=== PATIENT | male | born 1960 | race Caucasian/White ===

== ENCOUNTER 2019-05-24 12:59 | Observation (INO) | payer OTHER ==
[2019-05-24 13:42] LABS: Absolute Lymphocytes (CBC) 2.2 K/uL (0.7-4.9); Basophils % 1.3 % (0-1.3); Hematocrit 51.4 % (39.6-49.0); Lymphocytes % 27.7 % (15.3-44.8); MPV 7.8 fL (7.6-11.3); RBC Red Blood Cell Count 5.15 M/uL (4.33-5.43)
[2019-05-24 13:46] LABS: Protime INR 0.96
[2019-05-24] MEDS ORDERED: ASPIRIN 81 MG CHEWABLE TABLET ONE (13:46)
--- NOTE | 2019-05-24 13:59 | RAD REPORT ---
EXAM DESCRIPTION: RAD - Chest Single View - 05/24/2019 1:33 pm CLINICAL HISTORY: CHEST PAIN Chest pain. COMPARISON: No comparisons FINDINGS: Portable technique limits examination quality. The lungs are grossly clear. The heart is normal in size. No displaced fractures. IMPRESSION: No acute intrathoracic process suspected.
[2019-05-24 14:01] LABS: ALT/SGPT 36 U/L (12-78); AST/SGOT 31 U/L (15-37); Albumin 3.6 g/dL (3.4-5.0); Alkaline Phosphatase 94 U/L (45-117); BUN Blood Urea Nitrogen 8 mg/dL (7-18); Bicarbonate 30 mmol/L (21-32); Bilirubin Direct 0.2 mg/dL (0-0.2); Bilirubin Total 0.8 mg/dL (0.2-1.0); Glucose Level 92 mg/dL (74-106); Lipase 124 U/L (73-393); Magnesium 2.5 mg/dL (1.8-2.4); NT PRO-BNP 57 pg/mL (<125); Potassium 3.8 mmol/L (3.5-5.1); Protein, Total 8.1 g/dL (6.4-8.2); Sodium Level 141 mmol/L (136-145); Troponin (Emerg Dept Use Only) < 0.02 ng/mL (0.0-0.045)
[2019-05-24] MEDS ORDERED: LEVALBUTEROL 1.25 MG/3 ML NEB ONE (14:17)
[2019-05-24] MEDS ORDERED: METHYLPREDNISOLONE 125 MG INJ ONE (14:17)
[2019-05-24] MEDS ORDERED: IPRATROPIUM BROM 0.5MG/2.5ML ONE (14:17)
--- NOTE | 2019-05-24 14:50 | ER ---
Nurse's Notes [facility] Name: Richmond Quintero Age: 58 yrs Sex: Male : 1960 Arrival Date: 05/24/2019 Time: 13:00 Bed 27 Private MD: Diagnosis: Chest pain, unspecified;Chest pain on breathing;Essential (primary) hypertension;Esophagitis;Tobacco abuse counseling;Tobacco use Presentation: 05/24 13:18 Presenting complaint: Patient states: R sided chest pain that radiates to the neck ca1 started 1.5 hrs ago. Described as heavy and pressure, has been constant for the last 45 minutes. Pt reports SOB upon exertion. DENIES cough and congestion, DENIES N/V/dizziness/lightheaded. Transition of care: patient was not received from another setting of care. Onset of symptoms was May 24, 2019. Risk Assessment: Do you want to hurt yourself or someone else? Patient reports no desire to harm self or others. Initial Sepsis Screen: Does the patient meet any 2 criteria? No. Patient's initial sepsis screen is negative. Does the patient have a suspected source of infection? No. Patient's initial sepsis screen is negative. Care prior to arrival: None. 13:18 Method Of Arrival: Wheelchair ca1 13:18 Acuity: ARIA 3 ca1 Historical: - Allergies: 13:22 No Known Allergies; ca1 - Home Meds: 13:22 Metoprolol Tartrate Oral [Active]; Lexapro Oral [Active]; Lisinopril Oral [Active]; ca1 Omeprazole Oral [Active]; - PMHx: 13:22 Hypertension; Anxiety; Acid Reflux; Atrial Fib; ca1 - PSHx: 13:22 None; ca1 - Immunization history:: Adult Immunizations up to date, Pneumococcal vaccine is not up to date, Flu vaccine is not up to date. - Social history:: Smoking status: Patient uses tobacco products, smokes one pack cigarettes per day. - Ebola Screening: : Patient negative for fever greater than or equal to 101.5 degrees Fahrenheit, and additional compatible Ebola Virus Disease symptoms Patient denies exposure to infectious person Patient denies travel to an Ebola-affected area in the 21 days before illness onset No symptoms or risks identified at this time. - Family history:: not pertinent. Screenin:33 Abuse screen: Denies threats or abuse. Denies injuries from another. Nutritional mg2 screening: No deficits noted. Tuberculosis screening: No symptoms or risk factors identified. Fall Risk IV access (20 points). Assessment: 14:31 General: Appears in no apparent distress. comfortable, Behavior is calm, cooperative. mg2 Pain: Complains of pain in chest Pain radiates to neck Pain currently is 2 out of 10 on a pain scale. Quality of pain is described as aching. Pain: Pain began gradually, 2 hours ago. Neuro: Level of Consciousness is awake, alert, obeys commands, Oriented to person, place, time, situation. Cardiovascular: Capillary refill < 3 seconds Patient's skin is warm and dry. Respiratory: Airway is patent Respiratory effort is even, unlabored, Respiratory pattern is regular, symmetrical. GI: No signs and/or symptoms were reported involving the gastrointestinal system. : No signs and/or symptoms were reported regarding the genitourinary system. EENT: No signs and/or symptoms were reported regarding the EENT system. Derm: Skin is intact, is healthy with good turgor, Skin is pink, warm \T\ dry. normal. Vital Signs: 13:22 BP 134 / 81; Pulse 68; Resp 17 S; Temp 98.4(O); Pulse Ox 94% on R/A; Weight 111.13 kg ca1 (R); Height 6 ft. 0 in. (182.88 cm) (R); Pain 5/10; 14:34 BP 127 / 86; Pulse 58; Resp 18; Pulse Ox 95% on R/A; mg2 13:22 Body Mass Index 33.23 (111.13 kg, 182.88 cm) ca1 ED Course: 13:00 Patient arrived in ED. mr 13:09 Balta Boyle MD is Attending Physician. graeme 13:20 Triage completed. ca1 13:22 Arm band placed on right wrist. EKG completed in triage. Results shown to . ca1 13:28 Inserted saline lock: 20 gauge in right antecubital area, using aseptic technique. ss Blood collected. 13:37 XRAY Chest (1 view) In Process Unspecified. EDMS 13:42 Jagdeep Madrid, RN is Primary Nurse. mg2 14:33 Patient has correct armband on for positive identification. shelter monitor on. Pulse mg2 ox on. NIBP on. Door closed. Warm blanket given. 14:34 No provider procedures requiring assistance completed. Patient maintains SpO2 mg2 saturation greater than 95% on room air. 14:45 Hansel Yan DO is Hospitalizing Provider. [facility] 15:35 CT Chest For PE Angio In Process Unspecified. EDHI 16:14 Hansel Yan DO is Hospitalizing Provider. [facility] 17:02 Patient admitted, IV remains in place. mg2 Administered Medications: 14:01 Not Given (Patient Refused; patient had 325 mg an hour UPSETTER): Aspirin Chewable Tablet mg2 324 mg PO once; 81 mg tablets x 4 14:29 Drug: SOLU-Medrol 125 mg Route: IVP; Site: left antecubital; mg2 16:02 Follow up: Response: No adverse reaction mg2 14:30 Not Given (Patient Refused): Xopenex 1.25 mg Inhalation once mg2 14:30 Not Given (Patient Refused): AtroVENT Aerosol 0.5 mg Inhalation once mg2 16:15 Drug: GI Cocktail without - (Maalox Suspension 30 ml, Lidocaine Liquid 2 % 15 mg2 ml) Route: PO; 16:29 Follow up: Response: No adverse reaction; Marked relief of symptoms mg2 16:16 Drug: Lovenox 100 mg Route: Sub-Q; Site: right lower abdomen; mg2 16:29 Follow up: Response: No adverse reaction mg2 16:42 Drug: ProTONIX 40 mg Route: IVP; Site: left antecubital; mg2 17:02 Follow up: Response: No adverse reaction mg2 Outcome: 14:49 Decision to Hospitalize by Provider. graeme 16:15 Decision to Hospitalize by Provider. [facility] 17:02 Admitted to Med/surg accompanied by tech, via wheelchair, room 228, with chart, Report mg2 called to NIKO Romano 17:02 Condition: stable 17:02 Instructed on the need for admit, Demonstrated understanding of instructions. 17:05 Patient left the ED. mg2 Signatures: Dispatcher [employer] Balta Walsh MD MD cha Rivera, Mary mr Smirch, Shelby, NIKO POPE ss Jagdeep Madrid RN RN mg2 Jennifer Galloway RN RN ca1
--- NOTE | 2019-05-24 14:51 | EDPHYS ---
Physician Documentation [facility] Name: Richmond Quintero Age: 58 yrs Sex: Male : 1960 Arrival Date: 05/24/2019 Time: 13:00 Bed 27 Private MD: ED Physician Balta Boyle HPI: 05/24 13:33 This 58 yrs old Male presents to ER via Wheelchair with complaints of Chest graeme Pain. 13:33 The patient or guardian reports chest pain that is located primarily in the substernal graeme area. Onset: just prior to arrival, this morning. The pain does not radiate. Associated signs and symptoms: The patient has no apparent associated signs or symptoms. The chest pain is described as a pressure, squeezing. Duration: The patient or guardian reports a single episode, that is still ongoing. Modifying factors: The symptoms are alleviated by nothing. the symptoms are aggravated by nothing. Severity of pain: At its worst the pain was moderate in the emergency department the pain has improved mildly. The patient has experienced similar episodes in the past, several times. Historical: - Allergies: 13:22 No Known Allergies; ca1 - Home Meds: 13:22 Metoprolol Tartrate Oral [Active]; Lexapro Oral [Active]; Lisinopril Oral [Active]; ca1 Omeprazole Oral [Active]; - PMHx: 13:22 Hypertension; Anxiety; Acid Reflux; Atrial Fib; ca1 - PSHx: 13:22 None; ca1 - Immunization history:: Adult Immunizations up to date, Pneumococcal vaccine is not up to date, Flu vaccine is not up to date. - Social history:: Smoking status: Patient uses tobacco products, smokes one pack cigarettes per day. - Ebola Screening: : Patient negative for fever greater than or equal to 101.5 degrees Fahrenheit, and additional compatible Ebola Virus Disease symptoms Patient denies exposure to infectious person Patient denies travel to an Ebola-affected area in the 21 days before illness onset No symptoms or risks identified at this time. - Family history:: not pertinent. ROS: 13:33 Constitutional: Negative for fever, chills, and weight loss, Eyes: Negative for injury, graeme pain, redness, and discharge, ENT: Negative for injury, pain, and discharge, Neck: Negative for injury, pain, and swelling, Respiratory: Negative for shortness of breath, cough, wheezing, and pleuritic chest pain, Abdomen/GI: Negative for abdominal pain, nausea, vomiting, diarrhea, and constipation, Back: Negative for injury and pain, : Negative for injury, bleeding, discharge, and swelling, MS/Extremity: Negative for injury and deformity, Skin: Negative for injury, rash, and discoloration, Neuro: Negative for headache, weakness, numbness, tingling, and seizure, Psych: Negative for depression, anxiety, suicide ideation, homicidal ideation, and hallucinations, Allergy/Immunology: Negative for hives, rash, and allergies, Endocrine: Negative for neck swelling, polydipsia, polyuria, polyphagia, and marked weight changes, Hematologic/Lymphatic: Negative for swollen nodes, abnormal bleeding, and unusual bruising. 13:33 Cardiovascular: Positive for chest pain, of the right clavicle, anterior aspect of right upper chest and right breast. Exam: 13:33 Constitutional: This is a well developed, well nourished patient who is awake, alert, graeme and in no acute distress. Head/Face: Normocephalic, atraumatic. Eyes: Pupils equal round and reactive to light, extra-ocular motions intact. Lids and lashes normal. Conjunctiva and sclera are non-icteric and not injected. Cornea within normal limits. Periorbital areas with no swelling, redness, or edema. ENT: Nares patent. No nasal discharge, no septal abnormalities noted. Tympanic membranes are normal and external auditory canals are clear. Oropharynx with no redness, swelling, or masses, exudates, or evidence of obstruction, uvula midline. Mucous membranes moist. Neck: Trachea midline, no thyromegaly or masses palpated, and no cervical lymphadenopathy. Supple, full range of motion without nuchal rigidity, or vertebral point tenderness. No Meningismus. Chest/axilla: Normal chest wall appearance and motion. Nontender with no deformity. No lesions are appreciated. Cardiovascular: Regular rate and rhythm with a normal S1 and S2. No gallops, murmurs, or rubs. Normal PMI, no JVD. No pulse deficits. Respiratory: Lungs have equal breath sounds bilaterally, clear to auscultation and percussion. No rales, rhonchi or wheezes noted. No increased work of breathing, no retractions or nasal flaring. Abdomen/GI: Soft, non-tender, with normal bowel sounds. No distension or tympany. No guarding or rebound. No evidence of tenderness throughout. Back: No spinal tenderness. No costovertebral tenderness. Full range of motion. Skin: Warm, dry with normal turgor. Normal color with no rashes, no lesions, and no evidence of cellulitis. MS/ Extremity: Pulses equal, no cyanosis. Neurovascular intact. Full, normal range of motion. Neuro: Awake and alert, GCS 15, oriented to person, place, time, and situation. Cranial nerves II-XII grossly intact. Motor strength 5/5 in all extremities. Sensory grossly intact. Cerebellar exam normal. Normal gait. Psych: Awake, alert, with orientation to person, place and time. Behavior, mood, and affect are within normal limits. 14:03 Musculoskeletal/extremity: DVT Exam: No signs of deep vein thrombosis. no pain, no graeme swelling, no tenderness, negative Homans' sign noted on exam, no appreciated bluish discoloration, no erythema, no increased warmth. Vital Signs: 13:22 BP 134 / 81; Pulse 68; Resp 17 S; Temp 98.4(O); Pulse Ox 94% on R/A; Weight 111.13 kg ca1 (R); Height 6 ft. 0 in. (182.88 cm) (R); Pain 5/10; 14:34 BP 127 / 86; Pulse 58; Resp 18; Pulse Ox 95% on R/A; mg2 13:22 Body Mass Index 33.23 (111.13 kg, 182.88 cm) ca1 MDM: 13:09 Patient medically screened. [facility] 13:34 Data reviewed: vital signs, nurses notes, lab test result(s), EKG, radiologic studies, [facility] CT scan, plain films. 05/24 13:11 Order name: Basic Metabolic Panel; Complete Time: 14:43 [facility] 05/24 13:11 Order name: CBC with Diff; Complete Time: 13:51 [facility] 05/24 13:11 Order name: LFT's; Complete Time: 14:43 [facility] 05/24 13:11 Order name: Magnesium; Complete Time: 14:43 [facility] 05/24 13:11 Order name: NT PRO-BNP; Complete Time: 14:43 [facility] 05/24 13:11 Order name: PT-INR; Complete Time: 14:43 [facility] 05/24 13:11 Order name: Troponin (emerg Dept Use Only); Complete Time: 14:43 [facility] 05/24 13:11 Order name: XRAY Chest (1 view); Complete Time: 14:43 [facility] 05/24 13:11 Order name: Lipase; Complete Time: 14:43 [facility] 05/24 13:32 Order name: CT Chest For PE Angio; Complete Time: 16:11 [facility] 05/24 13:11 Order name: EKG; Complete Time: 13:12 [facility] 05/24 13:11 Order name: Cardiac monitoring; Complete Time: 13:42 [facility] 05/24 13:11 Order name: EKG - Nurse/Tech; Complete Time: 13:42 [facility] 05/24 13:11 Order name: IV Saline Lock; Complete Time: 13:42 [facility] 05/24 13:11 Order name: Labs collected and sent; Complete Time: 13:42 [facility] 05/24 13:11 Order name: O2 Per Protocol; Complete Time: 13:42 [facility] 05/24 13:11 Order name: O2 Sat Monitoring; Complete Time: 13:42 [facility] 05/24 13:11 Order name: Urine Dipstick-Ancillary (obtain specimen); Complete Time: 17:02 [facility] Administered Medications: 14:01 Not Given (Patient Refused; patient had 325 mg an hour DISTRIBUTION CENTER MANAGER): Aspirin Chewable Tablet mg2 324 mg PO once; 81 mg tablets x 4 14:29 Drug: SOLU-Medrol 125 mg Route: IVP; Site: left antecubital; mg2 16:02 Follow up: Response: No adverse reaction mg2 14:30 Not Given (Patient Refused): Xopenex 1.25 mg Inhalation once mg2 14:30 Not Given (Patient Refused): AtroVENT Aerosol 0.5 mg Inhalation once mg2 16:15 Drug: GI Cocktail without - (Maalox Suspension 30 ml, Lidocaine Liquid 2 % 15 mg2 ml) Route: PO; 16:29 Follow up: Response: No adverse reaction; Marked relief of symptoms mg2 16:16 Drug: Lovenox 100 mg Route: Sub-Q; Site: right lower abdomen; mg2 16:29 Follow up: Response: No adverse reaction mg2 16:42 Drug: ProTONIX 40 mg Route: IVP; Site: left antecubital; mg2 17:02 Follow up: Response: No adverse reaction mg2 Disposition: 05/24/19 16:15 Hospitalization ordered by Hansel Yan for Observation. Preliminary diagnosis are Chest pain, unspecified, Chest pain on breathing, Essential (primary) hypertension, Esophagitis, Tobacco abuse counseling, Tobacco use. - Bed requested for Telemetry/MedSurg (observation). - Status is Observation. mg2 - Condition is Fair. - Problem is new. - Symptoms have improved. UTI on Admission? No Signatures: Dispatcher [employer] EDMS Kristy Macdonald RN RN dw Anderson, Corey, MD MD cha Gardose, Michele, RN RN mg2 Jennifer Galloway RN RN ca1 Corrections: (The following items were deleted from the chart) 16:12 14:49 Hospitalization Ordered by Hansel Yan DO for Observation. Preliminary graeme diagnosis is Chest pain, unspecified; Chest pain on breathing; Essential (primary) hypertension; Tobacco abuse counseling; Tobacco use. Bed requested for Telemetry/MedSurg (observation). Status is Observation. Condition is Fair. Problem is new. Symptoms have improved. UTI on Admission? No. graeme 16:12 16:12 05/24/2019 14:49 Hospitalization Ordered by Hansel Yan DO for Observation. graeme Preliminary diagnosis is Chest pain, unspecified; Chest pain on breathing; Essential (primary) hypertension; Tobacco abuse counseling; Tobacco use; Esophagitis; Chronic obstructive pulmonary disease, unspecified. Bed requested for Telemetry/MedSurg (observation). Status is Observation. Condition is Fair. Problem is new. Symptoms have improved. UTI on Admission? No. graeme 16:25 16:15 Hospitalization Ordered by Hansel Yan DO for Observation. Preliminary dw diagnosis is Chest pain, unspecified; Chest pain on breathing; Essential (primary) hypertension; Esophagitis; Tobacco abuse counseling; Tobacco use. Bed requested for Telemetry/MedSurg (observation). Status is Observation. Condition is Fair. Problem is new. Symptoms have improved. UTI on Admission? No. graeme 17:05 16:25 05/24/2019 16:15 Hospitalization Ordered by Hansel Yan DO for Observation. mg2 Preliminary diagnosis is Chest pain, unspecified; Chest pain on breathing; Essential (primary) hypertension; Esophagitis; Tobacco abuse counseling; Tobacco use. Bed requested for Telemetry/MedSurg (observation). Status is Observation. Condition is Fair. Problem is new. Symptoms have improved. UTI on Admission? No. dw
[2019-05-24] MEDS ORDERED: ENOXAPARIN 100 MG/ML SYR SQ ONE (15:29)
--- NOTE | 2019-05-24 15:53 | RAD REPORT ---
EXAM DESCRIPTION: CT - Chest For Pe Angio - 05/24/2019 3:35 pm CLINICAL HISTORY: Chest pain. CHEST PAIN COMPARISON: No comparisons TECHNIQUE: CT angiogram of the pulmonary arteries was performed with MIP. All CT scans are performed using dose optimization technique as appropriate and may include automated exposure control or mA/KV adjustment according to patient size. FINDINGS: No evidence of pulmonary thromboembolism. No acute aortic finding demonstrated. Diffuse COPD is noted. The esophagus appears quite thick throughout its course. Small hiatal hernia i s also present. No significant pericardial or pleural fluid. No concerning bony finding. IMPRESSION: No evidence of pulmonary thromboembolism. Moderate COPD. The esophagus appears quite thick throughout its course with a small hiatal hernia. Esophagitis is a possibility. Recommend followup nonemergent upper endoscopy assessment.
[2019-05-24] MEDS ORDERED: ONDANSETRON 4 MG/2 ML VIAL ONE (16:08)
[2019-05-24] MEDS ORDERED: LIDOCAINE VISCOUS 2% SOLN 15 ML UDC ONE (16:08)
[2019-05-24] MEDS ORDERED: MORPHINE 4 MG/ML SYR ONE (16:08)
[2019-05-24] MEDS ORDERED: MAGNE/ALUM HYDROXD 30 ML UCUP ONE (16:08)
[2019-05-24] MEDS ORDERED: PANTOPRAZOLE 40 MG INJ ONE (16:29)
--- NOTE | 2019-05-24 16:32 | P.HP ---
Certification for Inpatient Patient admitted to: Observation With expected LOS: <2 Midnights Patient will require the following post-hospital care: None Practitioner: I am a practitioner with admitting privileges, knowledge of patient current condition, hospital course, and medical plan of care. Services: Services provided to patient in accordance with Admission requirements found in Title 42 Section 412.3 of the Code of Federal Regulations Patient History Date of Service: 05/24/19 Primary Care Provider: [facility] Reason for admission: Epigastric pain and right-sided chest pain History of Present Illness: 58-year-old male with history of hypertension, paroxysmally atrial fibrillation, GERD, anxiety and obstructive sleep apnea on CPAP. Patient reported right-sided chest pain today. He would radiate to the sternal region and epigastric area. He denied any nausea, vomiting, shortness of breath or palpitation. It was worse with swallowing liquid. He has reported some bright red blood over the past several months. He is to see GI here soon for EGD. Patient came to the ER for further evaluation. In the ER patient evaluated. EKG shows no significant EKG changes. Vital signs stable. Chest x-ray unremarkable. White count 8.1, hemoglobin 17.5. Platelet count 229. Sodium 141, potassium 3.8, GFR of 68. Glucose 92. Initial troponin unremarkable. CT scan showed no evidence of pulmonary embolism. No aortic abnormal finding. Diffuse COPD noted. Small hiatal hernia with esophagus appearing quite thick likely esophagitis. Patient was admitted for observation. When I saw the patient ER, he appeared comfortable. No significant chest pain noted. He reported some indigestion. He is to see GI here soon for EGD. Patient is seen at the [facility]. ER called for transfer but no beds were available. Home medications list reviewed: Yes - Past Medical/Surgical History Diabetic: No -: Hypertension -: Paroxysmally atrial fibrillation -: GERD with hiatal hernia -: Anxiety -: Obstructive sleep apnea on CPAP -: Tobacco abuse Past Surgical History: Patient denies surgical history Psychosocial/ Personal History: Patient lives at home. - Family History Family History: Reviewed- Non-Contributory - Social History Smoking Status: Heavy Tobacco smoker (>10 cigarettes/day) Counseled patient to stop smoking for: less than 10 minutes Smoking therapy provided: Yes Patient receptive to therapy: Yes Alcohol use: Yes CD- Drugs: No Caffeine use: Yes Place of Residence: Home Review of Systems General: As per HPI Eyes: Unremarkable ENT: Unremarkable Respiratory: Unremarkable Cardiovascular: Chest Pain, As per HPI Gastrointestinal: Hematochezia, Other (Indigestion and epigastric pain), As per HPI Genitourinary: Unremarkable Musculoskeletal: Unremarkable Integumentary: Unremarkable Neurological: Unremarkable Lymphatics: Unremarkable Physical Examination - Physical Exam General: Alert, In no apparent distress, Oriented x3, Cooperative HEENT: Atraumatic, Normocephalic, PERRLA, Mucous membr. moist/pink Neck: Supple, No Thyromegaly Respiratory: Clear to auscultation bilaterally, Normal air movement Cardiovascular: Normal pulses, Regular rate/rhythm Gastrointestinal: Normal bowel sounds, Soft and benign, Non-distended, No ascites, No tenderness, No masses, No rebound, No guarding Musculoskeletal: No erythema, No tenderness, No warmth Integumentary: No tenderness/swelling, No erythema, No warmth, No cyanosis Neurological: Normal speech, Normal strength at 5/5 x4 extr, Normal tone, Normal affect - Studies Laboratory Data (last 24 hrs) 05/24/19 13:24: PT 11.4, INR 0.96 05/24/19 13:24: WBC 8.1, Hgb 17.5, Hct 51.4 H, Plt Count 227 05/24/19 13:24: Sodium 141, Potassium 3.8, BUN 8, Creatinine 1.10, Glucose 92, Magnesium 2.5 H, Total Bilirubin 0.8, AST 31, ALT 36, Alkaline Phosphatase 94, Lipase 124 Assessment and Plan - Plan Impression: Right-sided chest pain/epigastric pain likely related to esophagitis with GERD and hiatal hernia Hypertension Paroxysmally atrial fibrillation not on chronic anti coagulation therapy Anxiety Obstructive sleep apnea on CPAP Plan: Right-sided chest pain/epigastric pain likely related to esophagitis with GERD and hiatal hernia: Patient will be admitted for observation. Will monitor telemetry and cardiac enzymes. Suspect chest pain and epigastric pain related to esophagitis. Patient with GERD and hiatal hernia. He currently takes Prilosec over the counter. Will start Protonix IV twice daily. If cardiac enzymes unremarkable will plan to discharge home. Patient has appointment GI soon. If neck set of troponin and H&H unremarkable will plan for discharge. I will make arrangements for the patient to see GI as early as tomorrow for EGD evaluation. GERD/hiatal hernia/esophagitis education provided. Will continue monitor closely. Hypertension: Continue medications metoprolol and lisinopril. Paroxysmally atrial fibrillation not on chronic anti coagulation therapy: Continue metoprolol. Anxiety: Continue Lexapro. Obstructive sleep apnea on CPAP: Continue CPAP at night. Discharge Plan: Home Plan to discharge in: 24 Hours - Advance Directives Does patient have a Living Will: No Does patient have a Durable POA for Healthcare: No - Code Status/Comfort Care Code Status Assessed: Yes (Patient is full code) Time Spent Managing Pts Care (In Minutes): 55
[2019-05-24] MEDS ORDERED: ACETAMINOPHEN 500 MG TAB PO PRN (17:25)
[2019-05-24] MEDS ORDERED: SODIUM CHLORIDE 0.9% 10ML INJ IV PRN (17:25)
[2019-05-24] MEDS ORDERED: ONDANSETRON 4 MG/2 ML VIAL IV PRN (17:25)
[2019-05-24 18:01] VITALS: O2SAT 93
[2019-05-24 18:24] VITALS: BMI 33.6
[2019-05-24 19:15] LABS: Hematocrit 50.5 % (39.6-49.0)
[2019-05-24 19:52] LABS: CKMB Creatine Kinase MB 1.3 ng/mL (0.3-3.6); Creatine Phosphokinase 79 U/L (39-308); Troponin I < 0.02 ng/mL (0.0-0.045)
[2019-05-24] MEDS ORDERED: PANTOPRAZOLE 40 MG INJ IVP SCH (21:00)
[2019-05-24 21:25] VITALS: BP 134/66; TEMP 98.5
--- NOTE | 2019-05-25 05:32 | EKG ---
Test Date: 2019-05-24 Test Time: 13:12:08 [employer] Driver: DAVIDSON MEASUREMENT RESULTS: Intervals: Rate: 59 DE: 150 QRSD: 86 QT: 412 QTc: 407 [place]: P: 42 DE: 150 QRS: 65 T: 58 INTERPRETIVE STATEMENTS: Sinus bradycardia with premature ventricular complexes or fusion complexes Otherwise normal ECG Compared to ECG 12/02/1999 08:50:00 Fusion complex(es) now present Ventricular premature complex(es) now present Sinus rhythm no longer present Electronically Signed On 05-25-19 05:30:28 CONSUMER SAFETY OFFICER by Landon Valderrama
[2019-05-25] MEDS ORDERED: METOPROLOL TAR 25 MG TAB PO SCH (06:00)
[2019-05-25] MEDS ORDERED: lisinopriL 20 MG TAB PO SCH (09:00)
[2019-05-25] MEDS ORDERED: ESCITALOPRAM 20 MG TAB PO SCH (09:00)
[2019-05-25] MEDS ORDERED: ASPIRIN EC 81 MG TAB PO SCH (09:00)
[2019-05-25] MEDS ORDERED: ENOXAPARIN 40 MG/0.4 ML SQ SCH (09:00)
--- NOTE | 2019-05-25 09:24 | EKG ---
Test Date: 2019-05-24 Test Time: 15:51:04 Photo Cartographer: SONIA MEASUREMENT RESULTS: Intervals: Rate: 54 DC: 152 QRSD: 88 QT: 444 QTc: 421 [place]: P: 53 DC: 152 QRS: 60 T: 55 INTERPRETIVE STATEMENTS: Sinus bradycardia Otherwise normal ECG Compared to ECG 05/24/2019 13:12:08 Fusion complex(es) no longer present Ventricular premature complex(es) no longer present Electronically Signed On 05-25-19 09:23:59 [employer] by Landon Valderrama
== END 2019-05-24 21:37 | disposition home or self-care (01) ==
LOC: ER 12:59 → ERHOLD 16:19 → 2ND 16:52
PROVIDERS: ADMIT Family Medicine; ATTEND Family Medicine
DX: K21.0 Gastro-esophageal reflux disease with esophagitis (principal); K44.9 Diaphragmatic hernia without obstruction or gangrene; I10 Essential (primary) hypertension; I48.0 Paroxysmal atrial fibrillation; G47.33 Obstructive sleep apnea (adult) (pediatric); F17.210 Nicotine dependence, cigarettes, uncomplicated; F41.9 Anxiety disorder, unspecified; Z79.01 Long term (current) use of anticoagulants
CPT/HCPCS: 93005 ×2; 85025; 80048; 36415; 83735; 82550; 85610; 80076; 85018; 85014; 84484 ×2; 82553; 83690; 83880; 71275; 71045; 96375; 96372; 96374; 99285; Q9967; C9113 ×2; J1650; J2930; G0378 ×2; J2405

== ENCOUNTER 2021-05-19 10:22 | Emergency (ER) | payer OTHER ==
--- OUTSIDE RECORDS SUMMARY | 2021-05-19 10:26 | XMS REPORT | Continuity of Care Document ---
:1960 Author Organization [facility] t Address [address] [place] [address] Care Team Providers Name Role Phone Unavailable Unavailable Unavailable Payers Payer Name Policy Type Policy Number Effective Date Expiration Date S ource Problems This patient has no known problems. Allergies, Adverse Reactions, Alerts Allergy Allergy Status Severity Reaction(s) Onset Inactive Treating Comm ents Source Name Type Date Date Clinician No Known DA Active U 2014-05 [facility] Allergie 06-17 [place] s 00:00: [address] Medications This patient has no known medications. Procedures This patient has no known procedures. Results Test Description Test Time Test Comments Results Result Comments Source BASIC METABOLIC PANEL 2018-08-25 15:38:00 Test Item Value Reference Range Interpretation Comme nts SODIUM (test code = NA) 138.0 mmol/L 133-144 N POTASSIUM (test code = K) 3.9 mmol/L 3.5-5.1 N CHLORIDE (test code = CL) 105 mmol/L 95-105 N CARBON DIOXIDE (test code 26 mmol/L 21-32 N = CO2) ANION GAP (test code = 7.0 GAP calc 4.0-15.0 N GAP) GLUCOSE (test code = GLU) 73 MG/DL 70-110 N BLOOD UREA NITROGEN (test 7 MG/DL 7-18 N code = BUN) CREATININE (test code = 0.80 MG/DL 0.55-1.30 N Resu lts may be depressed CREAT) if patient is takingN-Acetylc ysteine (NAC) and Metam izole (Dipyrone). CALCIUM (test code = CA) 9.2 MG/DL 8.5-10.1 N INDEX HEMOLYSIS (test code 2 TRACE 10-25 MG 1 NORMAL = HEMINDEX) Index/DL INDEX ICTERIC (test code = 1 NORMAL <2 MG 1 NORMAL ICTINDEX) Index/DL INDEX LIPEMIA (test code = 1 NORMAL <50 MG 1 NORMAL LIPINDEX) Index/DL [id number] 15:38:00 Test Item Value Reference Range Interpretation Comments TROPONIN-I < 0.015 NG/ML 0.000-0.045 N An elevated tr oponin value (test code = alone is not varela fficient TROPI) todiagnose a my ocardial infarction. Rat her, the patient'sclinic al presentation (h istory, physical exam) and ECGshould be used in conj unction with troponin in the diagnostic evaluation of s uspected myocardial infa rction. Aserial samplin g protocol is recommended to facilitate theidentificati on of temporal change s in troponin levelscharacter istic of [place]. - XR CHEST 1 [id number] 15:25:00 FAX: Tayo Cisneros MD R1 [place]: St: REG Patient Name: LOIS DAVEY Unit No: [id number] EXAMS: CPT CODE: [id number] XR CHEST 1 V 23826 Site ID: [id number] HISTORY: Chest pain FINDINGS: The lungs are clear and normally expanded. The heart and pulmonary vasculature is normal. Osseous structures are unremarkable. IMPRESSION: Negative chest X-ray. at 0010 Reported and signed by: Shaheed Redman M.D. CC: Tayo Cisneros MD Dictated Date/Time: 08/25/2018 ([id number])Technologist: Sharmin Shields Transcribed Date/Time: 08/25/2018 ([id number]) By: [email or web address] [facility] [place] NAME: [address] PHYS: Tayo Garrett MD [id number], [place] [address] : 1960 AGE: 57 SEX: M LOC: DAGMAR PHONE #: [phone] EXAM DATE: 08/25/2018 STATUS: REG ER FAX #: [phone] RAD NO: DC Dt: PAGE 1 Signed ReportCBC W/O [id number] 15:23:00 Test Item Value Reference Range Interpretation Comments WHITE BLOOD CELL (test code = WBC) 14.1 K/mm3 4.1-12.1 H RED BLOOD CELL (test code = RBC) 5.57 M/mm3 3.8-5.5 H HEMOGLOBIN (test code = HGB) 17.4 G/DL 10.6-15.8 H HEMATOCRIT (test code = HCT) 51.0 % 36.0-47.4 H MEAN CELL VOLUME (test code = MCV) 91.6 fL 80.1-101.1 N MEAN CELL HGB (test code = MCH) 31.2 pg 25.3-35.3 N MEAN CELL HGB CONCETRATION (test 34.1 G/DL 32.7-35.1 N code = MCHC) RED CELL DISTRIBUTION WIDTH (test 13.2 % 12.2-16.4 N code = RDW) PLATELET COUNT (test code = PLT) 307 K/mm3 155-337 N MEAN PLATELET VOLUME (test code = 8.4 fL 7.6-10.4 N MPV) TROPONIN I [id number] 15:22:00 Test Item Value Reference Range Interpretation Comments TROPONIN I RAPID 0.00 NG/ML 0.00-0.07 N An elevated troponin value (test code = alone is not varela fficient TROPIRAP) todiagnose a my ocardial infarction. Rat her, the patient'sclinic al presentation (h istory, physical exam) and ECGshould be us ed in conjunction wit h troponin in thediagnosti c evaluation of suspected my ocardial infarction. Ase rial sampling protoc ol is recommended to facilitate theidentificati on of temporal change s in troponin levelscharacter istic of [place]. CHEMISTRY 7 [id number] 15:16:00 Test Item Value Reference Range Interpretation Comments IONIZED CALCIUM (test code = CAIABG) mmol/L 1.13-1.32 ISTAT-TCO2 VENOUS (test code = MMOL/L 21-32 N TCO2VP) ISTAT-SODIUM (test code = NAP) MMOL/L 135-148 ISTAT-POTASSIUM (test code = KP) MMOL/L 3.5-5.9 ISTAT-CHLORIDE (test code = CLP) MMOL/L 98-106 ISTAT-ANION GAP (test code = GAPP) MEQ/L 10-20 ISTAT-GLUCOSE (test code = GLUP) MG/DL 70-119 N ISTAT-BUN (test code = BUNP) MG/DL 8-28 L BEDSIDE CREATININE (test code = MG/DL 0.6-1.2 N CREATBED) GLOMERULAR FILTRATION RATE POC (test 115 56-130 N code = GFRBED) CHEMISTRY 7 [id number] 15:16:00 Test Item Value Reference Range Interpretation Comments IONIZED CALCIUM (test 1.16 mmol/L 1.13-1.32 N code = CAIABG) ISTAT-TCO2 VENOUS (test 25 MMOL/L 21-32 N code = TCO2VP) ISTAT-SAMPLE SOURCE UNKNOWN SPEC TYPE Specimen (test code = SRCIST) Descript ISTAT-SODIUM (test code 140 MMOL/L 135-148 N = NAP) ISTAT-POTASSIUM (test 4.0 MMOL/L 3.5-5.9 N code = KP) ISTAT-CHLORIDE (test 104 MMOL/L 98-106 N code = CLP) ISTAT-ANION GAP (test 16.0 MEQ/L 10-20 N code = GAPP) ISTAT-GLUCOSE (test code 74 MG/DL 70-119 N = GLUP) ISTAT-BUN (test code = 6 MG/DL 8-28 L BUNP) BEDSIDE CREATININE (test 0.7 MG/DL 0.6-1.2 N code = CREATBED) GLOMERULAR FILTRATION 115 56-130 N RATE POC (test code = GFRBED)
[2021-05-19 11:51] LABS: Protime INR 0.99
--- NOTE | 2021-05-19 11:59 | RAD REPORT ---
EXAM DESCRIPTION: Barbara Single View05/19/2021 11:53 am CLINICAL HISTORY: Chest pain COMPARISON: 2019 FINDINGS: The lungs appear clear of acute infiltrate. The heart is normal size IMPRESSION: No acute abnormalities displayed
[2021-05-19 12:04] LABS: ALT/SGPT 35 U/L (12-78); AST/SGOT 51 U/L (15-37); Albumin 3.1 g/dL (3.4-5.0); Alkaline Phosphatase 113 U/L (45-117); BUN Blood Urea Nitrogen 5 mg/dL (7-18); Bicarbonate 28 mmol/L (21-32); Bilirubin Direct 0.2 mg/dL (0-0.2); Bilirubin Total 0.6 mg/dL (0.2-1.0); Glucose Level 106 mg/dL (74-106); Magnesium 2.3 mg/dL (1.8-2.4); NT PRO-BNP 59 pg/mL (<125); Potassium 4.1 mmol/L (3.5-5.1); Protein, Total 8.1 g/dL (6.4-8.2); Sodium Level 137 mmol/L (136-145); Troponin (Emerg Dept Use Only) < 0.02 ng/mL (0.0-0.045)
[2021-05-19 12:36] LABS: Hematocrit 52.5 % (39.6-49.0); Lymphocytes % 27.6 % (15.3-44.8); MPV 7.2 fL (7.6-11.3); RBC Red Blood Cell Count 5.37 M/uL (4.33-5.43)
--- NOTE | 2021-05-19 18:57 | ER ---
Nurse's Notes [facility] Name: Richmond Quintero Age: 60 yrs Sex: Male : 1960 Arrival Date: 05/19/2021 Time: 10:22 Bed 10 Private MD: Diagnosis: Essential (primary) hypertension Presentation: 05/19 10:38 Chief complaint: Patient states: high blood pressure for 1.5 weeks, "I couldn't get it eo2 down", reports left arm numbness for two weeks, and left sided chest pain onset today. Pt reports SOB with exertion, VIRAMONTES, denies dizziness, N/V/D, fever. Pt reports "cough from sinuses". Coronavirus screen: Vaccine status: Client denies travel out of the [place] in the last 14 days. Ebola Screen: Patient negative for fever greater than or equal to 101.5 degrees Fahrenheit, and additional compatible Ebola Virus Disease symptoms Patient denies exposure to infectious person. Patient denies travel to an Ebola-affected area in the 21 days before illness onset. No symptoms or risks identified at this time. Initial Sepsis Screen: Does the patient meet any 2 criteria? No. Patient's initial sepsis screen is negative. Does the patient have a suspected source of infection? No. Patient's initial sepsis screen is negative. Risk Assessment: Do you want to hurt yourself or someone else? Patient reports no desire to harm self or others. Onset of symptoms is unknown. 10:38 Method Of Arrival: Ambulatory eo2 10:38 Acuity: ARIA 2 eo2 Triage Assessment: 10:42 General: Appears in no apparent distress. Behavior is calm, cooperative. Pain: eo2 Complains of pain in left chest pain. Cardiovascular: Reports chest pain, shortness of breath. Historical: - Allergies: 10:42 No Known Allergies; eo2 - Home Meds: 10:42 Lexapro Oral [Active]; lisinopril Oral [Active]; Metoprolol Tartrate Oral [Active]; eo2 Omeprazole Oral [Active]; - PMHx: 10:42 Hypertension; Atrial Fib; Anxiety; acid reflux; eo2 - Immunization history:: Adult Immunizations up to date, Client reports receiving the 2nd dose of the Covid vaccine. - Social history:: Smoking status: Patient reports the use of cigarette tobacco products, 1.5 ppd, Patient uses alcohol, on a daily basis. street drugs, marijuana. - Family history:: not pertinent. - Hospitalizations: : No recent hospitalization is reported. Screenin:29 Abuse screen: Denies threats or abuse. Denies injuries from another. Nutritional viramontes screening: No deficits noted. Tuberculosis screening: No symptoms or risk factors identified. Fall Risk IV access (20 points). Assessment: 18:30 Pain: Pain began gradually. viramontes 18:30 Pain: Pain does not radiate. Cardiovascular: Reports chest pain. viramontes Vital Signs: 10:38 BP 142 / 92; Pulse 72; Resp 17; Temp 98.2; Pulse Ox 97% ; Weight 112.49 kg; Height 6 eo2 ft. 0 in. (182.88 cm); Pain 6/10; 18:28 BP 147 / 101; Pulse 66; Resp 18; Pulse Ox 96% on R/A; viramontes 10:38 Body Mass Index 33.63 (112.49 kg, 182.88 cm) eo2 ED Course: 10:22 Patient arrived in ED. ds1 10:42 Triage completed. eo2 10:42 Arm band placed on right wrist. Patient placed in waiting room, Patient notified of jl7 wait time. EKG completed in triage. Results shown to MD. 11:28 EKG done, by ED staff, reviewed by Cecil Islas MD. dh3 11:32 Initial lab(s) drawn, by me, sent to lab. Inserted saline lock: 20 gauge in right hand, dh3 using aseptic technique. Blood collected. 11:34 X-ray completed. Portable x-ray completed in exam room. md1 11:53 XRAY Chest (1 view) In Process Unspecified. EDMS 11:56 Basic Metabolic Panel Sent. jl7 11:56 CBC with Diff Sent. jl7 11:56 LFT's Sent. jl7 12:27 Lab(s) recollected, by me, sent to lab. 3 18:29 No provider procedures requiring assistance completed. Inserted saline lock: 20 gauge viramontes in right hand, using aseptic technique. Patient maintains SpO2 saturation greater than 95% on room air. 18:29 Patient has correct armband on for positive identification. Bed in low position. viramontes monitor tech on. Pulse ox on. NIBP on. 18:52 Cecil Islas MD is Attending Physician. rn 19:00 Au-Stager, Katherine, RN is Primary Nurse. fe7 Administered Medications: No medications were administered Outcome: 18:57 Discharge ordered by . rn 19:50 Patient left the ED. jlBasil Signatures: Dispatcher [employer] EDSC Janna Khan ds1 Cecil Islas MD MD rn Leal, Jahala, RN RN jl7 Ashtyn Lockwood formerly [facility] Ericka Jalloh md1 Katherine Gupta, RN RN viramontes Sherrell Prabhakar RN RN eo2
--- NOTE | 2021-05-19 18:58 | EDPHYS ---
Physician Documentation [facility] Name: Richmond Quintero Age: 60 yrs Sex: Male : 1960 Arrival Date: 05/19/2021 Time: 10:22 Bed 10 Private MD: ED Physician Cecil Islas HPI: 05/19 18:52 This 60 yrs old Male presents to ER via Ambulatory with complaints of High blood rn pressure. 18:53 Patient reports for the last 2 weeks has been having difficulty controlling his blood rn pressure, mainly in the diastolic. Otherwise feels okay. Denies any focal neurological problems. Reports left-sided chest pain but happened after lifting his dog. Has not felt ill recently. Is an active smoker and under more stress lately [facility]. Takes lisinopril and metoprolol. Did not take metoprolol tonight. Onset: The symptoms/episode began/occurred 2 week(s) ago. Severity of symptoms: At their worst the symptoms were moderate in the emergency department the symptoms are unchanged. The patient has not experienced similar symptoms in the past. The patient has not recently seen a physician. Historical: - Allergies: 10:42 No Known Allergies; eo2 - Home Meds: 10:42 Lexapro Oral [Active]; lisinopril Oral [Active]; Metoprolol Tartrate Oral [Active]; eo2 Omeprazole Oral [Active]; - PMHx: 10:42 Hypertension; Atrial Fib; Anxiety; acid reflux; eo2 - Immunization history:: Adult Immunizations up to date, Client reports receiving the 2nd dose of the Covid vaccine. - Social history:: Smoking status: Patient reports the use of cigarette tobacco products, 1.5 ppd, Patient uses alcohol, on a daily basis. street drugs, marijuana. - Family history:: not pertinent. - Hospitalizations: : No recent hospitalization is reported. ROS: 18:53 Constitutional: Negative for fever, chills, and weight loss, Eyes: Negative for injury, rn pain, redness, and discharge, Neck: Negative for injury, pain, and swelling, Cardiovascular: Negative for palpitations, and edema, Respiratory: Negative for shortness of breath, cough, wheezing, and pleuritic chest pain, Abdomen/GI: Negative for abdominal pain, nausea, vomiting, diarrhea, and constipation, Back: Negative for injury and pain, MS/Extremity: Negative for injury and deformity, Skin: Negative for injury, rash, and discoloration, Neuro: Negative for headache, weakness, numbness, tingling, and seizure. Exam: 18:53 Constitutional: This is a well developed, well nourished patient who is awake, alert, rn and in no acute distress. Head/Face: Normocephalic, atraumatic. Eyes: Periorbital areas with no swelling, redness, or edema. Cardiovascular: Regular rate and rhythm. No pulse deficits. Respiratory: No increased work of breathing, no retractions or nasal flaring. Skin: Warm, dry MS/ Extremity: Pulses equal, no cyanosis. Neurovascular intact. Full, normal range of motion. Equal circumference. Neuro: Awake and alert, GCS 15, oriented to person, place, time, and situation. Cranial nerves II-XII grossly intact. Motor strength 5/5 in all extremities. Sensory grossly intact. Cerebellar exam normal. Vital Signs: 10:38 BP 142 / 92; Pulse 72; Resp 17; Temp 98.2; Pulse Ox 97% ; Weight 112.49 kg; Height 6 eo2 ft. 0 in. (182.88 cm); Pain 6/10; 18:28 BP 147 / 101; Pulse 66; Resp 18; Pulse Ox 96% on R/A; nguyen 10:38 Body Mass Index 33.63 (112.49 kg, 182.88 cm) eo2 MDM: 18:52 Patient medically screened. rn 18:53 Differential Diagnosis Hypertension, malignant hypertension. Data reviewed: vital rn signs, nurses notes, lab test result(s), EKG, and as a result, I will discharge patient. Counseling: I had a detailed discussion with the patient and/or guardian regarding: the historical points, exam findings, and any diagnostic results supporting the discharge/admit diagnosis, lab results, the need for outpatient follow up, to return to the emergency department if symptoms worsen or persist or if there are any questions or concerns that arise at home. Special discussion: I discussed with the patient/guardian in detail that at this point there is no indication for admission to the hospital. It is understood, however, that if the symptoms persist or worsen the patient needs to return immediately for re-evaluation. Based on the history and exam findings, there is no indication for further emergent testing or inpatient evaluation. I discussed with the patient/guardian the need to see the primary care provider for further evaluation of the symptoms. ED course: No ischemia on EKG, negative troponin, normal renal function, normal neuro exam. Recommend taking his nighttime metoprolol as his diastolic is a little bit high currently, taking blood pressure once in the morning once in the evening and taking that to his PCP for medication recommendations. Also recommend smoking cessation in addition to more regular CPAP usage. 05/19 11:15 Order name: Basic Metabolic Panel [facility] 05/19 11:15 Order name: CBC with Diff [facility] 05/19 11:15 Order name: LFT's [facility] 05/19 11:15 Order name: Magnesium; Complete Time: 16:18 [facility] 05/19 11:15 Order name: NT PRO-BNP; Complete Time: 16:18 [facility] 05/19 11:15 Order name: PT-INR; Complete Time: 16:18 [facility] 05/19 11:15 Order name: Troponin (emerg Dept Use Only); Complete Time: 16:18 [facility] 05/19 11:15 Order name: XRAY Chest (1 view); Complete Time: 16:18 [facility] 05/19 11:15 Order name: EKG; Complete Time: 11:16 [facility] 05/19 11:15 Order name: Cardiac monitoring; Complete Time: 18:24 [facility] 05/19 11:15 Order name: EKG - Nurse/Tech; Complete Time: 11:37 [facility] 05/19 11:16 Order name: Basic Metabolic Panel; Complete Time: 16:18 [facility] 05/19 11:16 Order name: CBC with Automated Diff; Complete Time: 16:18 [facility] 05/19 11:16 Order name: Liver (Hepatic) Function; Complete Time: 16:18 [facility] 05/19 11:15 Order name: IV Saline Lock; Complete Time: 11:37 [facility] 05/19 11:15 Order name: Labs collected and sent; Complete Time: 11:37 [facility] 05/19 11:15 Order name: O2 Per Protocol; Complete Time: :37 [facility] 05/19 11:15 Order name: O2 Sat Monitoring; Complete Time: 18:25 3 Administered Medications: No medications were administered Disposition Summary: 05/19/21 18:57 Discharge Ordered Location: Home rn Problem: an ongoing problem rn Symptoms: have improved rn Condition: Stable rn Diagnosis - Essential (primary) hypertension rn Followup: rn - With: Private Physician - When: As needed - Reason: Recheck today's complaints, Re-evaluation by your physician Discharge Instructions: - Discharge Summary Sheet rn - Hypertension, Adult rn - How to Take Your Blood Pressure, [id number] rn Forms: - Medication Reconciliation Form rn - Thank You Letter rn - Antibiotic returned materials inspector - Prescription Opioid Use rn Signatures: Dispatcher [employer] EDCecil Mcqueen MD MD rn Herrera, Ashtyn 3 Sherrell Prabhakar, RN RN eo2
[2021-05-19 20:06] VITALS: TEMP 98.2
[2021-05-19 20:08] VITALS: BP 147/101; O2SAT 96
== END 2021-05-19 19:50 | disposition home or self-care (01) ==
LOC: ER 10:22
DX: I10 Essential (primary) hypertension (principal); F41.9 Anxiety disorder, unspecified; K21.9 Gastro-esophageal reflux disease without esophagitis
CPT/HCPCS: 36415; 71045; 80048; 80076; 83735; 83880; 84484; 85025; 85610; 93005; 99285